=== PATIENT | male | born 1950 | race Caucasian/White ===

== ENCOUNTER → 2017-02-04 | Outpatient (CLI) | payer OTHER, MEDICARE ==
[~2017-02-04] MED LIST: ADULT LOW DOSE81 M1 PO; ASPIR 8181 M1 PO; ASPIR-LOW81 MG PO; ASPIR-TRIN325 M1 PO; ASPIRIN325 MG PO; CEPHALEXIN500 MG PO; CIPRO500 MG PO; CLOPIDOGREL75 MG PO; COLACE100 MG PO; CYMBALTA60 MG PO; DAILY VALUE1 EACH PO; ENDOCET 5-3251 EACH PO; FLOMAX0.4 MG PO; INCRUSE ELLI62.5 MCG IH; IRBESARTAN150 MG PO; LIPITOR40 MG PO; LORTAB 5-325 M1 EACH PO; NAPROSYN500 MG PO; NEURONTIN100 MG PO; NIFEDIPINE ER60 MG PO; PLAVIX75 MG PO; PRAVASTATIN SOD40 MG PO; ZOFRAN ODT4 MG PO
== END | disposition home or self-care (01) ==
LOC: AMB 10:00
PROC: 0HB6XZZ Excision of Back Skin, External Approach (ICD-10-PCS; principal; 2017-02-04)
PROC: 0HB1XZX Excision of Face Skin, External Approach, Diagnostic (ICD-10-PCS; principal; 2017-02-04)
DX: D04.5 Carcinoma in situ of skin of trunk (principal); L82.1 Other seborrheic keratosis
CPT/HCPCS: 88305